=== PATIENT | female | born 1970 | race Caucasian/White ===

== ENCOUNTER 2023-08-24 10:17 | Emergency (ER) | payer BC ==
[2023-08-24] MEDS ORDERED: NA CHLORIDE 0.9% 1,000 ML ONE (10:39)
[2023-08-24] MEDS ORDERED: FOLIC ACID 5 MG/ML VIAL ONE (10:39)
[2023-08-24 11:27] LABS: Absolute Eosinophils 0.1 K/uL (0-0.5); Absolute Lymphocytes (CBC) 1.7 K/uL (0.7-4.9); Absolute Monocytes 0.5 K/uL (0.1-1.3); Basophils % 0.4 % (0-1.3); Eosinophils % 2.8 % (0-4.4); Hematocrit 42.8 % (36.0-45.0); Hemoglobin 14.8 g/dL (12.0-15.0); Lymphocytes % 31.6 % (15.3-44.8); MCH 31.2 pg (27.0-35.0); MCHC 34.6 g/dL (32.0-36.0); MCV 90.3 fL (80-100); MPV 8.4 fL (7.6-11.3); Monocytes % 10.1 % (3.3-12.3); Neutrophils % 55.1 % (41.7-73.7); Nucleated Red Blood Cells % 0.1 % (0-0); Platelets 235 thou/uL (152-406); RBC Red Blood Cell Count 4.74 M/uL (3.86-4.86); Red Cell Distribution Width 12.8 % (12.1-15.2)
[2023-08-24 11:36] LABS: PT Prothrombin Time 11.6 SECONDS (9.5-12.5); Protime INR 1.06
[2023-08-24 11:52] LABS: Albumin 3.5 g/dL (3.4-5.0); Albumin/Globulin Ratio 0.9 (1.1-1.8); Anion Gap 6.3 mEq/L (5.0-15.0); Bilirubin Direct 0.2 mg/dL (0-0.2); Bilirubin Indirect, Calculated 0.8 mg/dL (0.2-0.8); Magnesium 2.8 mg/dL (1.6-2.4); Potassium 3.3 mEq/L (3.5-5.1); Protein, Total 7.5 g/dL (6.4-8.2); Troponin High Sensitivity 3.2 pg/mL (<58.9)
--- NOTE | 2023-08-24 11:58 | RAD REPORT ---
EXAM DESCRIPTION: USCarotid Artery Bilateral08/24/2023 11:12 am CLINICAL HISTORY: Numbness COMPARISON: None FINDINGS: The velocity of the right internal carotid artery equals 72 cm/sec. The right ICA/CCA rati o normal The velocity of the left internal carotid artery equals 101 cm/sec. The left ICA/CCA ratio normal Mild plaque is present within the carotid arteries. The vertebral arteries demonstrate antegrade flow NASCET criteria used. Mild 0-49% stenosis Moderate 50-69% stenosis Severe 70-99% stenosis IMPRESSION: No significant abnormality is displayed
[2023-08-24] MEDS ORDERED: POTASSIUM 25 MEQ EFFERV TAB ONE (12:30)
--- NOTE | 2023-08-24 12:39 | RAD REPORT ---
EXAM DESCRIPTION: MRI - Brain Wo Cont - 08/24/2023 12:17 pm CLINICAL HISTORY: Numbness COMPARISON: None TECHNIQUE: Axial, sagittal, and coronal magnetic resonance images of the brain were obtained. FINDINGS: No significant abnormal signal within the brain Diffusion-weighted/ADC mapping does not reveal evidence of acute infarction. The ventricles are normal caliber. An extra-axial fluid collection is not noted. Minimal signal left mastoids IMPRESSION: No acute intracranial abnormality is displayed
--- NOTE | 2023-08-24 12:45 | RAD REPORT ---
EXAM DESCRIPTION: MRI - C Spine Wo Cont - 08/24/2023 12:25 pm CLINICAL HISTORY: Numbness COMPARISON: None TECHNIQUE: Magnetic resonance imaging of the cervical spine was obtained. Sagittal and axial images completed. FINDINGS: No significant abnormality craniocervical junction C2-3 and C3-4 are unremarkable Mild spondylosis C4-5 C5-6 disc is thinned. Disc bulge is present. Osteophytes and uncal vertebral hypertrophy are present. Moderate narrowing of the left neural foramina. The thecal sac minimally narrowed. Small left paracentral disc herniation C6-7. C7-T1 unremarkable The spinal cord is normal caliber and signal. No significant abnormal signal within the bones is noted. IMPRESSION: Small left paracentral disc herniation C6-7 Spondylosis C5-6 results in moderate left foraminal stenosis
[2023-08-24] MEDS ORDERED: dexAMETHasone 10 MG/ML VIAL ONE (13:05)
[2023-08-24] MEDS ORDERED: KETOROLAC 30 MG/ML INJ ONE (13:05)
--- NOTE | 2023-08-24 13:10 | EDPHYS ---
Physician Documentation [facility] Name: Casandra Beatty Age: 53 yrs Sex: Female : 1970 Arrival Date: 08/24/2023 Time: 10:17 Bed 5 Private MD: ED Physician Darnell Pastor HPI: 08/23 11:09 This 53 yrs old Female presents to ER via Ambulatory with complaints of Arm gwen Problem. 11:09 The patient or guardian complains of left arm numb, tight. The complaints affect the gwen left bicep, dorsal aspect of left forearm, left tricep and palmar aspect of left forearm. Context: The problem was sustained at work. Onset: The symptoms/episode began/occurred 1 day(s) ago. Treatment prior to arrival includes: no previous treatment. Modifying factors: The symptoms are alleviated by nothing. the symptoms are aggravated by nothing. Associated signs and symptoms: The patient has no apparent associated signs or symptoms. Severity of symptoms: At their worst the symptoms were mild, in the emergency department the symptoms are unchanged. The patient has not experienced similar symptoms in the past. Historical: - Allergies: 10:29 Ancef; ap3 - PSHx: 10:29 hernia repair with mesh; partial hysterectomy; breast augmentation; ap3 - Immunization history:: Client reports having NOT received the Covid vaccine. Flu vaccine is not up to date. - Infectious Disease History:: Denies. - Social history:: Smoking status: Reported history of juuling and/or vaping. - Family history:: not pertinent. ROS: 11:09 Constitutional: Negative for fever, chills, and weight loss, Eyes: Negative for injury, gwen pain, redness, and discharge, ENT: Negative for injury, pain, and discharge, Neck: Negative for injury, pain, and swelling, Cardiovascular: Negative for chest pain, palpitations, and edema, Respiratory: Negative for shortness of breath, cough, wheezing, and pleuritic chest pain, Abdomen/GI: Negative for abdominal pain, nausea, vomiting, diarrhea, and constipation, Back: Negative for injury and pain, : Negative for injury, bleeding, discharge, and swelling, Skin: Negative for injury, rash, and discoloration, Psych: Negative for depression, anxiety, suicide ideation, homicidal ideation, and hallucinations, Allergy/Immunology: Negative for hives, rash, and allergies, Endocrine: Negative for neck swelling, polydipsia, polyuria, polyphagia, and marked weight changes, Hematologic/Lymphatic: Negative for swollen nodes, abnormal bleeding, and unusual bruising, 11:09 MS/extremity: Positive for decreased range of motion, pain, paresthesias, of the left arm, Exam: 11:09 Constitutional: This is a well developed, well nourished patient who is awake, alert, gwen and in no acute distress. Head/Face: Normocephalic, atraumatic. Eyes: Pupils equal round and reactive to light, extra-ocular motions intact. Lids and lashes normal. Conjunctiva and sclera are non-icteric and not injected. Cornea within normal limits. Periorbital areas with no swelling, redness, or edema. ENT: Nares patent. No nasal discharge, no septal abnormalities noted. Tympanic membranes are normal and external auditory canals are clear. Oropharynx with no redness, swelling, or masses, exudates, or evidence of obstruction, uvula midline. Mucous membranes moist. Neck: Trachea midline, no thyromegaly or masses palpated, and no cervical lymphadenopathy. Supple, full range of motion without nuchal rigidity, or vertebral point tenderness. No Meningismus. Chest/axilla: Normal chest wall appearance and motion. Nontender with no deformity. No lesions are appreciated. Cardiovascular: Regular rate and rhythm with a normal S1 and S2. No gallops, murmurs, or rubs. Normal PMI, no JVD. No pulse deficits. Respiratory: Lungs have equal breath sounds bilaterally, clear to auscultation and percussion. No rales, rhonchi or wheezes noted. No increased work of breathing, no retractions or nasal flaring. Abdomen/GI: Soft, non-tender, with normal bowel sounds. No distension or tympany. No guarding or rebound. No evidence of tenderness throughout. Back: No spinal tenderness. No costovertebral tenderness. Full range of motion. Skin: Warm, dry with normal turgor. Normal color with no rashes, no lesions, and no evidence of cellulitis. MS/ Extremity: Pulses equal, no cyanosis. Neurovascular intact. Full, normal range of motion. Neuro: Awake and alert, GCS 15, oriented to person, place, time, and situation. Cranial nerves II-XII grossly intact. Motor strength 5/5 in all extremities. Sensory grossly intact. Cerebellar exam normal. Normal gait. Psych: Awake, alert, with orientation to person, place and time. Behavior, mood, and affect are within normal limits. 11:14 ECG was reviewed by the Attending Physician. [facility] Vital Signs: 10:27 BP 119 / 83; Pulse 83; Resp 18; Temp 97.6; Pulse Ox 100% ; Weight 88.45 kg; Height 5 ap3 ft. 5 in. ; Pain 0/10; 11:19 Pulse 80; Resp 18; Pulse Ox 100% ; mb9 12:37 BP 110 / 87; Pulse 78; Resp 18; Pulse Ox 100% on R/A; mb9 13:29 BP 114 / 84; Pulse 71; Resp 16; Pulse Ox 100% on R/A; mb9 10:27 Body Mass Index 32.45 (88.45 kg, 165.1 cm) ap3 10:27 Pain Scale: Adult ap3 NIH Stroke Scale Scores: 11:09 NIHSS Score: 1 gwen Tijeras Coma Score: 11:09 Eye Response: spontaneous(4). Motor Response: obeys commands(6). Verbal Response: [facility] oriented(5). Total: 15. MDM: 10:24 Patient medically screened. [facility] 11:12 Differential diagnosis: contusion, tendonitis. Data reviewed: vital signs, nurses [facility] notes, lab test result(s), EKG, radiologic studies, doppler, MRI. Consideration of Admission/Observation Escalation of care including admission/observation considered. I considered the following discharge prescriptions or medication management in the emergency department Medications were administered in the Emergency Department. See MAR. Independent interpretation of the following test(s) in the Emergency Department EKG: See my EKG interpretation above. Test considered but Not performed: CT: no cta head and neck. Care significantly affected by the following chronic conditions: none. Counseling: I had a detailed discussion with the patient and/or guardian regarding the historical points, exam findings, and any diagnostic results supporting the discharge/admit diagnosis, lab results, radiology results, the need for outpatient follow up. 08/23 10:28 Order name: Basic Metabolic Panel; Complete Time: 12:24 [facility] 08/23 10:28 Order name: CBC with Diff; Complete Time: 11:48 [facility] 08/23 10:28 Order name: LFT's; Complete Time: 12:24 [facility] 08/23 10:28 Order name: Magnesium; Complete Time: 12:24 [facility] 08/23 10:28 Order name: NT PRO-BNP; Complete Time: 12:24 [facility] 08/23 10:28 Order name: PT-INR; Complete Time: 11:48 [facility] 08/23 10:28 Order name: Troponin HS; Complete Time: 12:24 [facility] 08/23 10:28 Order name: XRAY Chest (1 view) 08/23 10:28 Order name: US Carotid Artery Bilateral; Complete Time: 12:24 [facility] 08/23 11:19 Order name: C Spine Wo Cont; Complete Time: 12:51 EDMS 08/23 11:22 Order name: Brain Wo Cont; Complete Time: 12:51 EDMS 08/23 10:28 Order name: Cardiac monitoring; Complete Time: 10:36 [facility] 08/23 10:28 Order name: EKG - Nurse/Tech; Complete Time: 11:20 [facility] 08/23 10:28 Order name: IV Saline Lock; Complete Time: 11:20 [facility] 08/23 10:28 Order name: Labs collected and sent; Complete Time: 11:20 [facility] 08/23 10:28 Order name: O2 Per Protocol; Complete Time: 10:36 [facility] 08/23 10:28 Order name: O2 Sat Monitoring; Complete Time: 10:36 [facility] 08/23 12:26 Order name: Misc. Order: juice; Complete Time: 12:27 [facility] EC:14 Rate is 72 beats/min. Rhythm is regular. QRS [place] is Normal. [place] interval is normal. QRS gwen interval is normal. QT interval is normal. No Q waves. T waves are Normal. No ST changes noted. Clinical impression: Normal ECG and No evidence of ischemia. Interpreted by me. Reviewed by me. Administered Medications: 11:20 Drug: NS 0.9% IV 1000 ml IV at 1 bolus Per protocol; 1000 mL bolus Route: IV; Rate: 1 mb9 bolus; Site: right antecubital; 13:11 Follow up: Response: No adverse reaction; IV Status: Completed infusion mb9 13:38 Follow up: Response: No adverse reaction; IV Status: Completed infusion mb9 11:20 Drug: foLIC Acid IVPB 1 mg IVPB once Route: IVPB; Site: right antecubital; mb9 13:11 Follow up: Response: No adverse reaction; IV Status: Completed infusion mb9 12:37 Drug: Potassium PO Effervescent Tablet 25 mEq PO once; dissolve in 4 ounces of water or mb9 juice Route: PO; 13:11 Follow up: Response: No adverse reaction mb9 13:08 Drug: Decadron - Dexamethasone IVP 10 mg IVP once Route: IVP; Site: right antecubital; mb9 13:37 Follow up: Response: No adverse reaction mb9 13:10 Drug: Ketorolac IVP 30 mg IVP once Route: IVP; Site: right antecubital; mb9 13:37 Follow up: Response: No adverse reaction mb9 Disposition Summary: 08/24/23 13:09 Discharge Ordered Notes: Location: Home gwen Problem: new gwen Symptoms: have improved gwen Condition: Stable gwen Diagnosis - Hypoglycemia, unspecified gwen - Hypokalemia gwen - Cervical disc disorder with radiculopathy, cervicothoracic region gwen - Cervical disc disorder with radiculopathy gwen Followup: gwen - With: Private Physician - When: 2 - 3 days - Reason: Recheck today's complaints, Continuance of care, Re-evaluation by your physician Followup: gwen - With: Angel Villar MD - When: 2 - 3 days - Reason: Recheck today's complaints, Re-evaluation by your physician Discharge Instructions: - Discharge Summary Sheet gwen - Cervical Radiculopathy gwen - Potassium Content of Foods gwen - Herniated Disk gwen - Hypoglycemia gwen - Hypoglycemia, [id number] gwen - Hypokalemia gwen - Cervical Radiculopathy, [id number] Forms: - Medication Reconciliation Form gwen - Antibiotic Education gwen - Prescription Opioid Use gwen - Patient Portal Instructions [facility] - Leadership Thank You Letter [facility] Prescriptions: - acetaminophen-codeine 300-30 mg Oral tablet - take 2 tablet ORAL route every 6 hours as needed for pain; 20 tablet; Refills: gwen 0, Product Selection Permitted - dexamethasone 4 mg Oral tablet - take 1 tablet ORAL route once daily; 4 tablet; Refills: 0, Product Selection gwen Permitted - diclofenac sodium 50 mg Oral tablet, delayed release (enteric coated) - take 1 tablet ORAL route 3 times per day; 30 tablet; Refills: 0, Product gwen Selection Permitted - Cyclobenzaprine 5 mg Oral Tablet - take 1 tablet ORAL route 3 times per day As needed; 15 tablet; Refills: 0, gwen Product Selection Permitted NIH Stroke Scale - NIH Stroke Score Date: 08/24/2023 Time: 11:09 Total Score = 1 10. Dysarthria (speech clarity - read or repeat words) - 0(Normal) 11. Extinction and Inattention (visual/tactile/auditory/spatial/personal) - 0(No abnormality) 1a. Level of Consciousness (LOC) - 0(Alert) 1b. Level of Consciousness (LOC) (Month \T\ Age) - 0(Both) 1c. LOC Commands (Open \T\ Closes Eyes/Industrial Health And Safety Professor) - 0(Both) 2. Best Gaze (Lateral Gaze Paresis) - 0(Normal) 3. Visual Field Loss - 0(No visual loss) 4. Facial Palsy - 0(Normal) 5a. Left Arm: Motor (10-second hold) - 0(No drift) 5b. Right Arm: Motor (10-second hold) - 0(No drift) 6a. Left Leg: Motor (5-second hold - always test supine) - 0(No drift) 6b. Right Leg: Motor (5-second hold - always test supine) - 0(No drift) 7. Limb Ataxia (finger/nose \T\ heel/olvias - test with eyes open) - 0(Absent) 8. Sensory Loss (pinprick arms/legs/face) - 1(Mild to moderate loss) 9. Best Language: Aphasia (description/naming/reading) - 0(No aphasia) Initials: gwen Signatures: Dispatcher [employer] EDDarnell Linton MD MD cha Prokisch, Amanda RN RN ap3 Zara Booth RN RN mb9 Corrections: (The following items were deleted from the chart) 10:28 10:28 MR STROKE PROTOCOL+MRI.RAD.BRZ ordered. EDMS EDMS 10:28 10:28 Carotid Artery Bilateral+US.RAD.BRZ ordered. EDMS EDMS 11:20 10:39 C Spine W/Wo Cont ordered. EDMS EDMS
--- NOTE | 2023-08-24 13:10 | ER ---
Nurse's Notes [facility] Name: Casandra Beatty Age: 53 yrs Sex: Female : 1970 Arrival Date: 08/24/2023 Time: 10:17 Bed 5 Private MD: Diagnosis: Hypoglycemia, unspecified;Hypokalemia;Cervical disc disorder with radiculopathy, cervicothoracic region;Cervical disc disorder with radiculopathy Presentation: 08/23 10:27 Chief complaint: Patient states: she started having left arm tingling and bilateral leg ap3 tingling yesterday. patient reports the legs improved however she continues to feel the tingling in the left arm today. patient also reports light headedness during this time as well. patient denies any pain. patient denies any nausea. Coronavirus screen: At this time, the client does not indicate any symptoms associated with coronavirus-19. Ebola Screen: No symptoms or risks identified at this time. Initial Sepsis Screen: Does the patient meet any 2 criteria? No. Patient's initial sepsis screen is negative. Does the patient have a suspected source of infection? No. Patient's initial sepsis screen is negative. Risk Assessment: Do you want to hurt yourself or someone else? Patient reports no desire to harm self or others. Onset of symptoms was August 23, 2023. 10:27 Method Of Arrival: Ambulatory ap3 10:27 Acuity: MAGDALENA 3 ap3 Triage Assessment: 10:31 General: Appears in no apparent distress. Behavior is calm, cooperative, appropriate ap3 for age. Pain: Denies pain. Neuro: Level of Consciousness is awake, alert, obeys commands, Oriented to person, place, time, situation, Gait is steady, Speech is normal, Reports tingle feeling in her left arm. Cardiovascular: Patient's skin is warm and dry. Respiratory: Airway is patent Respiratory effort is even, unlabored, Respiratory pattern is regular, symmetrical. Historical: - Allergies: 10:29 Ancef; ap3 - PSHx: 10:29 hernia repair with mesh; partial hysterectomy; breast augmentation; ap3 - Immunization history:: Client reports having NOT received the Covid vaccine. Flu vaccine is not up to date. - Infectious Disease History:: Denies. - Social history:: Smoking status: Reported history of juuling and/or vaping. - Family history:: not pertinent. Screenin:32 Abuse screen: Denies threats or abuse. Nutritional screening: No deficits noted. ap3 Tuberculosis screening: No symptoms or risk factors identified. 10:41 [facility] ED Fall Risk Assessment (Adult) History of falling in the last 3 months, mb9 including since admission No falls in past 3 months (0 pts) Confusion or Disorientation No (0 pts) Intoxicated or Sedated No (0 pts) Impaired Gait No (0 pts) Mobility Assist Device Used No (0 pt) Altered Elimination No (0 pt) Score/Fall Risk Level 0 - 2 = Low Risk Oriented to surroundings, Maintained a safe environment, Educated pt \T\ family on fall prevention, incl call for assistance when getting out of bed. Assessment: 11:00 General: Appears in no apparent distress. Behavior is calm, cooperative. Pain: Denies mb9 pain. Neuro: Adams Agitation-Sedation Scale (RASS): 0 - Alert and Calm Level of Consciousness is awake, alert, obeys commands, Oriented to person, place, time, situation, Appropriate for age Photo Lab Manager are equal bilaterally Moves all extremities. Gait is steady, Speech is normal, Facial symmetry appears normal, Pupils are PERRLA, Tingling in left arm, right leg and left leg. Cardiovascular: Heart tones S1 S2 present Patient's skin is warm and dry. Respiratory: Airway is patent Respiratory effort is even, unlabored, Respiratory pattern is regular, symmetrical, Breath sounds are clear bilaterally. GI: Abdomen is round non-distended, Bowel sounds present X 4 quads. Abd is soft and non tender X 4 quads. 11:00 : No signs and/or symptoms were reported regarding the genitourinary system. EENT: No mb9 signs and/or symptoms were reported regarding the EENT system. Derm: Skin is pink, warm \T\ dry. Musculoskeletal: Range of motion: intact in all extremities. 12:37 Reassessment: No changes from previously documented assessment. Patient and/or family mb9 updated on plan of care and expected duration. Pain level reassessed. Patient is alert, oriented x 3, equal unlabored respirations, skin warm/dry/pink. 13:29 Reassessment: Discharge pending completion of fluids. mb9 13:30 Reassessment: Patient appears in no apparent distress at this time. No changes from mb9 previously documented assessment. Patient and/or family updated on plan of care and expected duration. Pain level reassessed. Patient is alert, oriented x 3, equal unlabored respirations, skin warm/dry/pink. Vital Signs: 10:27 BP 119 / 83; Pulse 83; Resp 18; Temp 97.6; Pulse Ox 100% ; Weight 88.45 kg; Height 5 ap3 ft. 5 in. ; Pain 0/10; 11:19 Pulse 80; Resp 18; Pulse Ox 100% ; mb9 12:37 BP 110 / 87; Pulse 78; Resp 18; Pulse Ox 100% on R/A; mb9 13:29 BP 114 / 84; Pulse 71; Resp 16; Pulse Ox 100% on R/A; mb9 10:27 Body Mass Index 32.45 (88.45 kg, 165.1 cm) ap3 10:27 Pain Scale: Adult ap3 Xander Coma Score: 11:09 Eye Response: spontaneous(4). Motor Response: obeys commands(6). Verbal Response: gwen oriented(5). Total: 15. NIH Stroke Scale Scores: 11:09 NIHSS Score: 1 gwen ED Course: 10:23 Patient arrived in ED. mg5 10:24 Darnell Pastor MD is Attending Physician. gwen 10:29 Triage completed. ap3 10:32 Zara Booth, RN is Primary Nurse. mb9 10:32 Arm band placed on right wrist. ap3 10:41 Placed in gown. Bed in low position. Call light in reach. Side rails up X 1. Provided mb9 Education on: press call light if needing anything. Client placed on continuous cardiac and pulse oximetry monitoring. NIBP monitoring applied. clinical research monitor on. 10:43 No provider procedures requiring assistance completed. mb9 11:14 US Carotid Artery Bilateral In Process Unspecified. EDMS 11:16 Warm blanket given. Pillow given. jg11 11:16 Initial lab(s) drawn, by ED staff, sent to lab. Urine collected: clean catch specimen, jg11 clear, EKG done, by ED staff, reviewed by Darnell Pastor MD. Inserted saline lock: 22 gauge in right antecubital area, using aseptic technique. Blood collected. 11:19 Basic Metabolic Panel Sent. mb9 11:19 CBC with Diff Sent. mb9 11:19 LFT's Sent. mb9 12:19 C Spine Wo Cont In Process Unspecified. EDMS 12:19 Brain Wo Cont In Process Unspecified. EDMS 13:00 XRAY Chest (1 view) In Process Unspecified. EDMS 13:08 Angel Villar MD is Referral Physician. gwen 13:29 IV discontinued, intact, bleeding controlled, No redness/swelling at site. Pressure mb9 dressing applied. Administered Medications: 11:20 Drug: NS 0.9% IV 1000 ml IV at 1 bolus Per protocol; 1000 mL bolus Route: IV; Rate: 1 mb9 bolus; Site: right antecubital; 13:11 Follow up: Response: No adverse reaction; IV Status: Completed infusion mb9 13:38 Follow up: Response: No adverse reaction; IV Status: Completed infusion mb9 11:20 Drug: foLIC Acid IVPB 1 mg IVPB once Route: IVPB; Site: right antecubital; mb9 13:11 Follow up: Response: No adverse reaction; IV Status: Completed infusion mb9 12:37 Drug: Potassium PO Effervescent Tablet 25 mEq PO once; dissolve in 4 ounces of water or mb9 juice Route: PO; 13:11 Follow up: Response: No adverse reaction mb9 13:08 Drug: Decadron - Dexamethasone IVP 10 mg IVP once Route: IVP; Site: right antecubital; mb9 13:37 Follow up: Response: No adverse reaction mb9 13:10 Drug: Ketorolac IVP 30 mg IVP once Route: IVP; Site: right antecubital; mb9 13:37 Follow up: Response: No adverse reaction mb9 Medication: 10:41 VIS not applicable for this client. mb9 Outcome: 13:09 Discharge ordered by . gwen 13:29 Discharged to home ambulatory, mb9 13:29 Condition: stable 13:29 Discharge instructions given to patient, Instructed on discharge instructions, follow up and referral plans. Demonstrated understanding of instructions, follow-up care, medications, Prescriptions given X 4, 13:44 Patient left the ED. mb9 NIH Stroke Scale - NIH Stroke Score Date: 08/24/2023 Time: 11:09 Total Score = 1 10. Dysarthria (speech clarity - read or repeat words) - 0(Normal) 11. Extinction and Inattention (visual/tactile/auditory/spatial/personal) - 0(No abnormality) 1a. Level of Consciousness (LOC) - 0(Alert) 1b. Level of Consciousness (LOC) (Month \T\ Age) - 0(Both) 1c. LOC Commands (Open \T\ Closes Eyes/Correctional Food Service Supervisor) - 0(Both) 2. Best Gaze (Lateral Gaze Paresis) - 0(Normal) 3. Visual Field Loss - 0(No visual loss) 4. Facial Palsy - 0(Normal) 5a. Left Arm: Motor (10-second hold) - 0(No drift) 5b. Right Arm: Motor (10-second hold) - 0(No drift) 6a. Left Leg: Motor (5-second hold - always test supine) - 0(No drift) 6b. Right Leg: Motor (5-second hold - always test supine) - 0(No drift) 7. Limb Ataxia (finger/nose \T\ heel/olivas - test with eyes open) - 0(Absent) 8. Sensory Loss (pinprick arms/legs/face) - 1(Mild to moderate loss) 9. Best Language: Aphasia (description/naming/reading) - 0(No aphasia) Initials: gwen Signatures: Dispatcher [employer] Darnell Moulton MD MD cha Prokisch, Amanda, RN RN margaret3 Zara Booth RN RN mb9 Allegra Parmar 5 Kodi [id number]
[2023-08-24 13:54] VITALS: BP 114/84; TEMP 97.6; O2SAT 100
--- NOTE | 2023-08-24 14:33 | RAD REPORT ---
EXAM DESCRIPTION: [place] Single View08/24/2023 12:59 pm CLINICAL HISTORY: CHEST PAIN COMPARISON: No comparisons TECHNIQUE: Portable AP view of the chest. FINDINGS: The lungs are clear, superimposed soft tissues over the lung bases limit evaluation. No p neumothorax or effusion. The cardiomediastinal contours are unremarkable. IMPRESSION: No acute cardiopulmonary process.
--- NOTE | 2023-08-28 15:08 | EKG ---
Test Date: 2023-08-24 Test Time: 11:10:23 Principle Industrial Hygienist: YENNI MEASUREMENT RESULTS: Intervals: Rate: 72 HI: 162 QRSD: 80 QT: 420 QTc: 459 [place]: P: 68 HI: 162 QRS: 51 T: 60 INTERPRETIVE STATEMENTS: Normal sinus rhythm Normal ECG No previous ECG available for comparison Electronically Signed On 08-28-23 14:55:46 CDT by Marcelo Morales
== END 2023-08-24 13:44 | disposition home or self-care (01) ==
LOC: ER 10:17
DX: M50.13 Cervical disc disorder with radiculopathy, cervicothoracic region (principal); E16.2 Hypoglycemia, unspecified; E87.6 Hypokalemia; Z98.82 Breast implant status
CPT/HCPCS: 96365; 93005; 85025; 80048; 36415; 83735; 85610; 80076; 84484; 83880; 71045; 93880; 70551; 72141; 96375; 99285; 96366; J1100; J7030